=== PATIENT | male | born 1985 | race Caucasian/White ===

== ENCOUNTER 2021-01-13 10:27 | Emergency (ER) | payer OTHER ==
[~2021-01-13] VITALS: Ht 177.8 cm; Wt 95.3 kg
== END 2021-01-13 13:43 | disposition home or self-care (01) ==
LOC: ER 10:27
DX: S90.32XA Contusion of left foot, initial encounter (principal); W18.09XA Striking against other object with subsequent fall, initial encounter; Y93.89 Activity, other specified; Y92.89 Other specified places as the place of occurrence of the external cause; Y99.8 Other external cause status

== ENCOUNTER 2021-12-04 12:05 | Emergency (ER) | payer OTHER ==
[~2021-12-04] VITALS: Ht 177.8 cm; Wt 90.7 kg
== END 2021-12-04 14:28 | disposition home or self-care (01) ==
LOC: ER 12:05
DX: S61.320A Laceration with foreign body of right index finger with damage to nail, initial encounter (principal); W26.0XXA Contact with knife, initial encounter; Y93.9 Activity, unspecified; Y92.019 Unspecified place in single-family (private) house as the place of occurrence of the external cause

== ENCOUNTER 2024-04-10 03:04 | Inpatient (IN) | payer OTHER ==
[~2024-04-10] VITALS: Ht 177.8 cm; Wt 88.5 kg
[2024-04-10] MEDS ORDERED: MEPERIDINE HCL/PF 50 MG/ML VIAL IM STA (04:27)
[2024-04-10] MEDS ORDERED: PIPERACILLIN/TAZOBACTAM SODIUM 3.375 GM VIAL IV STA (04:28)
[2024-04-10] MEDS ORDERED: RINGERS SOLUTION,LACTATED 1,000 ML IV ONE (04:30)
[2024-04-10 04:52] LABS: HEMATOCRIT 45.5 % (39.0-48.0); HEMOGLOBIN 15.7 g/dL (13-16.00); MEAN CELL VOLUME 89.3 fL (80.0-100.00); MEAN CORPUSCULAR HEMOGLOBIN 30.9 pg (27.00-32.0); MEAN CORPUSCULAR HGB CONC 34.6 g/dl (32.0-36.0); PLATELET COUNT 188 K/uL (150-450); RED CELL DISTRIBUTION WIDTH 13.2 % (11.5-14.5)
[2024-04-10 05:15] LABS: INR 1.11; PARTIAL THROMBOPLASTIN TIME 32.1 SECONDS (22.0-34.0)
[2024-04-10 05:19] LABS: BILIRUBIN TOTAL 1.01 mg/dL (0.3-1.2); BILIRUBIN,CONJUGATED 0.24 mg/dL (0.0-0.2); BILIRUBIN,UNCONJUGATED 0.77 mg/dL (0.0-0.6); CALCIUM 9.1 mg/dL (8.5-10.1); CREATININE SERUM 1.02 mg/dL (0.70-1.30); GFR 80.89; GLOBULINA 3.6 G/DL (2.4-3.5); POTASSIUM 3.8 mEq/L (3.5-5.1); TOTAL PROTEIN 7.6 gm/dL (6.4-8.2)
[2024-04-10 08:03] LABS: URINE APPEARANCE Clear; URINE BILIRRUBIN Negative (NEGATIVE); URINE BLOOD Negative; URINE COLOR Yellow; URINE GLUCOSE Negative (NEGATIVE); URINE KETONE Negative (NEGATIVE); URINE LEUKOCYTE Negative; URINE NITRATE Negative; URINE PROTEIN Negative (NEGATIVE); URINE UROBILINOGEN 0.2 E.U./dl
[2024-04-10 09:09] LABS: URINE BACTERIA 2.5 uL (0.0-1933); URINE EPITHELIAL CELLS 0.9 uL (0.0-38.8); URINE RBC 0.3 uL (0.0-20.8); URINE WBC 1.5 uL (0.0-23.2)
[2024-04-10] MEDS ORDERED: 0.9 % SODIUM CHLORIDE 1,000 ML IV SCH (10:30)
[2024-04-10] MEDS ORDERED: MORPHINE SULFATE 4 MG/ML VIAL IV PRN (10:30)
[2024-04-10] MEDS ORDERED: ONDANSETRON HCL 2 MG/ML VIAL IV ONE (10:45)
[2024-04-10 10:52] VITALS: BP 102/56
[2024-04-10] MEDS ORDERED: PIPERACILLIN/TAZOBACTAM SODIUM 3.375 GM in 0.9 % SODIUM CHLORIDE 100 ML IV SCH (12:00)
[2024-04-10] MEDS ORDERED: FAMOTIDINE/PF 20 MG in 0.9 % SODIUM CHLORIDE 100 ML IV SCH (17:00)
[2024-04-10] MEDS ORDERED: SUGAMMADEX SODIUM 200 MG/2 ML VIAL IV ONE (17:00)
[2024-04-10] MEDS ORDERED: MORPHINE SULFATE 4 MG/ML VIAL IV ONE (17:40)
[2024-04-10] MEDS ORDERED: MORPHINE SULFATE 4 MG/ML CARTRIDGE IV PRN (19:45)
[2024-04-10 21:30] VITALS: BP 134/79
[2024-04-11 01:04] VITALS: BP 120/72; O2SAT 98
[2024-04-11 06:58] LABS: HEMATOCRIT 39.7 % (39.0-48.0); HEMOGLOBIN 13.4 g/dL (13-16.00); MEAN CELL VOLUME 90.9 fL (80.0-100.00); MEAN CORPUSCULAR HEMOGLOBIN 30.7 pg (27.00-32.0); MEAN CORPUSCULAR HGB CONC 33.7 g/dl (32.0-36.0); PLATELET COUNT 161 K/uL (150-450); RED BLOOD COUNT 4.37 M/uL (4.00-6.00); RED CELL DISTRIBUTION WIDTH 13.3 % (11.5-14.5)
[2024-04-11 08:16] VITALS: BP 119/68; O2SAT 97
== END 2024-04-11 09:40 | disposition home or self-care (01) | DRG 399 ==
LOC: ER 03:05 → MEDI 12:31 → SEC-K 12:31 → MEDI 12:43
PROVIDERS: General Practice; Specialist; ADMIT Internal Medicine; ATTEND Internal Medicine
PROC: BW21ZZZ Computerized Tomography (CT Scan) of Abdomen and Pelvis (ICD-10-PCS; 2024-04-10)
PROC: 0DTJ4ZZ Resection of Appendix, Percutaneous Endoscopic Approach (ICD-10-PCS; principal; 2024-04-10 15:00)
DX: K35.890 Other acute appendicitis without perforation or gangrene (principal); Z20.822 Contact with and (suspected) exposure to COVID-19